=== PATIENT | female | born 1975 | race Caucasian/White ===

== ENCOUNTER 2025-02-09 14:30 | Outpatient (RCR) | payer OTHER, SELFPAY ==
[2024-11-30 11:56] VITALS: BP 132/86; RESP 14; TEMP 36.9; O2SAT 96
[2024-11-30] MEDS: Iron Sucrose Complex 200 MG/10 ML VIAL IVPUSH (12:04)
[2024-11-30] MEDS: 0.9 % Sodium Chloride Flush 10 ML SYRINGE 5 ML IVFLUSH (12:11)
[2024-12-07 11:33] VITALS: BP 136/92; PULSE 82; RESP 18; TEMP 36.9; O2SAT 96
[2024-12-07] MEDS: Iron Sucrose Complex 200 MG/10 ML VIAL IVPUSH (11:41)
[2024-12-14 12:17] VITALS: BP 143/93; PULSE 85; RESP 16; TEMP 36.6; O2SAT 96
[2024-12-14] MEDS: Iron Sucrose Complex 200 MG/10 ML VIAL IVPUSH (12:21)
[2024-12-28 11:06] VITALS: BP 135/98; RESP 14; TEMP 36.6; O2SAT 98
[2024-12-28] MEDS: Iron Sucrose Complex 200 MG/10 ML VIAL IVPUSH (11:16)
[2024-12-28 11:26] LABS: Hematocrit 40.9 % (37.0-47.0); Hemoglobin 12.4 g/dl (12.0-16.0); Mean Corpuscular HGB Conc 30.3 g/dl (31.0-35.0); Mean Corpuscular Hemoglobin 23.5 pg (27.0-33.0); Mean Corpuscular Volume 77.5 fL (80.0-98.0); Mean Platelet Volume 9.1 fL (9.4-12.3); Platelet Count 332 X10*3/uL (160-400); Red Blood Count 5.28 X10*6/uL (4.20-5.50); Red Cell Distribution Width 25.4 % (11.0-16.0); White Blood Count 6.8 X10*3/uL (4.8-10.8)
[2024-12-28 11:58] LABS: Ferritin 79 ng/mL (10-250)
[2025-01-04 12:04] VITALS: BP 133/95; PULSE 90; RESP 20; TEMP 36.5; O2SAT 98
[2025-01-04] MEDS: Iron Sucrose Complex 200 MG/10 ML VIAL IVPUSH (12:11)
[2025-01-11 12:03] VITALS: BP 134/100; PULSE 93; RESP 20; TEMP 36.6; O2SAT 98
[2025-01-11] MEDS: Iron Sucrose Complex 200 MG/10 ML VIAL IVPUSH (12:12)
[2025-01-11] MEDS: 0.9 % Sodium Chloride Flush 10 ML SYRINGE 5 ML IVFLUSH (12:27)
[2025-01-25 09:53] VITALS: BP 135/105; PULSE 90; RESP 16; TEMP 36.1; O2SAT 98
[2025-01-25] MEDS: Iron Sucrose Complex 200 MG/10 ML VIAL IVPUSH (09:59)
[2025-02-09 14:33] VITALS: BP 141/92; PULSE 90; RESP 16; TEMP 36.7; O2SAT 98
[2025-02-09] MEDS: Iron Sucrose Complex 200 MG/10 ML VIAL IVPUSH (14:48)
[2025-02-09 15:02] LABS: Hematocrit 45.6 % (37.0-47.0); Hemoglobin 14.8 g/dl (12.0-16.0); Mean Corpuscular HGB Conc 32.5 g/dl (31.0-35.0); Mean Corpuscular Hemoglobin 26.7 pg (27.0-33.0); Mean Corpuscular Volume 82.2 fL (80.0-98.0); Mean Platelet Volume 9.4 fL (9.4-12.3); Platelet Count 289 X10*3/uL (160-400); Red Blood Count 5.55 X10*6/uL (4.20-5.50); Red Cell Distribution Width 23.3 % (11.0-16.0); White Blood Count 6.3 X10*3/uL (4.8-10.8)
[2025-02-09 15:37] LABS: Ferritin 184 ng/mL (10-250)
== END 2025-02-09 15:32 | disposition home or self-care (01) ==
LOC: HO.INF 14:30
PROVIDERS: Visit Provider Nurse Practitioner Family
DX: D64.9 Anemia, unspecified (principal)
CPT/HCPCS: 36415; 82728; 85027; 96374; J1756